=== PATIENT | male | born 1945 | race Caucasian/White ===

== ENCOUNTER 2020-07-06 20:45 | Emergency (ER) | payer MEDICARE, BC ==
[2020-07-06 20:47] VITALS: BP 189/86; PULSE 88
--- NOTE | 2020-07-06 21:59 | EDM.PDOC ---
ED HPI GENERAL MEDICAL PROBLEM - General Chief Complaint: Genitourinary Problem Stated Complaint: unable to void Time Seen by Provider: 07/06/20 20:55 Source of Information: Reports: Patient History Limitations: Reports: No Limitations - History of Present Illness INITIAL COMMENTS - FREE TEXT/NARRATIVE: Pt unable to void since 1600 hrs Did try to self cath at home X 5 using old catheters from 5 yrs ago when had same problem Had TURP at that time Now with no urine Began noticing dysuria yesterday No fever Onset: Gradual Duration: Day(s):, Getting Worse Location: Reports: Abdomen Bladder Pain Score (Numeric/FACES): 8 - Related Data Allergies Allergy/AdvReac Type Severity Reaction Status Date / Time Sulfa (Sulfonamide Allergy Other Verified 07/06/20 20:48 Antibiotics) Home Meds: Home Meds Aspirin [Children's Aspirin] 81 mg PO DAILY 08/14/14 [History] Clopidogrel Bisulfate [Clopidogrel] 1 tab PO DAILY 08/14/14 [History] Irbesartan [Avapro] 300 mg PO DAILY 08/14/14 [History] Mesalamine [Pentasa] 2 cap PO DAILY 08/14/14 [History] Metoprolol Succinate 1 tab PO DAILY 08/14/14 [History] Potassium Chloride [Klor-Con M20] 1 tab PO DAILY 08/14/14 [History] Quinapril [Accupril] 40 mg PO DAILY 08/14/14 [History] amLODIPine [Norvasc] 10 mg PO DAILY 08/14/14 [History] Social & Family History - Tobacco Use Tobacco Use Status *Q: Never Tobacco User Second Hand Smoke Exposure: No - Caffeine Use Caffeine Use: Reports: None - Alcohol Use Days Per Week of Alcohol Use: 2 Number of Drinks Per Day: 1 Total Drinks Per Week: 2 - Recreational Drug Use Recreational Drug Use: No - Living Situation & Occupation Occupation: Retired ED ROS GENERAL - Review of Systems Review Of Systems: See Below Respiratory: Reports: No Symptoms Cardiovascular: Reports: No Symptoms GI/Abdominal: Reports: No Symptoms : Reports: Dysuria, Urinary Retention Musculoskeletal: Reports: No Symptoms ED EXAM, RENAL/ - Physical Exam Exam: See Below Exam Limited By: No Limitations General Appearance: Moderate Distress GI/Abdominal: Soft, Distended, Tender Course - Vital Signs Last Recorded V/S: Last Vital Signs Temp 99.1 F 07/06/20 20:46 Pulse 88 07/06/20 20:46 Resp 18 07/06/20 20:46 BP 189/86 H 07/06/20 20:46 Pulse Ox 98 07/06/20 20:46 - Orders/Labs/Meds Orders: Active Orders 24 hr Category Date Time Status Insert Sheth Catheter [Insert Urinary Catheter] [OM.PC] Care 07/06/20 21:15 Ordered Q24H Urinary Catheter Assessment [RC] ASDIRECTED Care 07/06/20 21:13 Active UA RFX ALICIA AND CULT IF INDIC [URIN] Stat Lab 07/06/20 21:12 Ordered - Re-Assessments/Exams Free Text/Narrative Re-Assessment/Exam: 07/06/20 21:[address] sheth per nursing D/W Dr Brookly[facility] Will accept in transfer to ER Departure - Departure Time of Disposition: 22:00 Disposition: DC/Tfer to Acute Hospital 02 Clinical Impression: Urinary retention - Discharge Information *PRESCRIPTION DRUG MONITORING PROGRAM REVIEWED*: Not Applicable *COPY OF PRESCRIPTION DRUG MONITORING REPORT IN PATIENT GINO: Not Applicable Referrals: Deana Beltran, [employer] [Primary Care Provider] - Sepsis Event Note (ED) - Evaluation Sepsis Screening Result: No Definite Risk - Focused Exam Vital Signs: Vital Signs Temp Pulse Resp BP Pulse Ox 07/06/20 20:46 99.1 F 88 18 189/86 H 98 - My Orders Last 24 Hours: My Active Orders 07/06/20 21:12 UA RFX ALICIA AND CULT IF INDIC [URIN] Stat 07/06/20 21:13 Urinary Catheter Assessment [RC] ASDIRECTED 07/06/20 21:15 Insert Sheth Catheter [Insert Urinary Catheter] [OM.PC] Q24H - Assessment/Plan Last 24 Hours: My Active Orders 07/06/20 21:12 UA RFX ALICIA AND CULT IF INDIC [URIN] Stat 07/06/20 21:13 Urinary Catheter Assessment [RC] ASDIRECTED 07/06/20 21:15 Insert Sheth Catheter [Insert Urinary Catheter] [OM.PC] Q24H
[2020-07-06] MEDS ORDERED: Morphine 4 MG/ML Syringe IM ONE (22:02)
== END 2020-07-06 22:10 ==
LOC: LL.ED 20:45
DX: R33.9 Retention of urine, unspecified (principal); Z79.82 Long term (current) use of aspirin; Z88.2 Allergy status to sulfonamides; Z79.02 Long term (current) use of antithrombotics/antiplatelets; Z79.899 Other long term (current) drug therapy
CPT/HCPCS: 96372; 99284; J2270

== ENCOUNTER 2020-10-06 12:21 | Observation (INO) | payer MEDICARE, BC ==
[2020-10-06] MEDS ORDERED: Famotidine 20 MG/2 ML SDV IVPUSH ONE (12:28)
--- NOTE | 2020-10-06 12:28 | EDM.PDOC ---
ED HPI GENERAL MEDICAL PROBLEM - General Chief Complaint: Chest Pain Stated Complaint: Afib with RVR Time Seen by Provider: 10/06/20 12:27 Source of Information: Reports: Patient, Family (Daughter, Lola), Old Records ([facility] chart/EMR), Other ( [facility] EMR) History Limitations: Reports: No Limitations - History of Present Illness INITIAL COMMENTS - FREE TEXT/NARRATIVE: Patient was brought to the emergency room from the cardiac rehab area in this facility after recurrence of his atrial fibrillation with rapid ventricular response during and after the Cardiolite stress test, which was performed shortly prior to his evaluation in the emergency room. Note that the patient's initial pulses were in the high 40s to low 50s prior to initiation of this proc edure with normal sinus bradycardia at that time, however some occasional PVCs and PACs were noted. No evidence of cardiac ischemia based on exercise portion of the Cardiolite evaluation, which was completed prior to the patient's arrival to the emergency room. Note that the patient was given 10 mg IV diltiazem x2 in the cardiac rehab unit with persistent brief occasional breakthrough mild tachy cardia in the 110s to 120s in spite of the above therapy. Secondary to his baseline bradycardia at rest and refractory atrial fibrillation as above the patient was evaluated in the emergency room for probable placement in observation status in this facility. Patient did have some spontaneous atrial fibrillation a couple of weeks ago prior to scheduled repeat TURP procedure, which was postponed secondary to this arrhythmia. He was placed on Eliquis at that time. The patient denies any chest pain/pressure, dizziness, orthostasis, orthopnea, diaphoresis, paresthesias, recent decreased exercise tolerance, or any other anginal-type symptoms. No recent history of abdominal pain, heartburn, nausea, diarrhea, melena, gross hematochezia, or any food intolerance, including fatty foods, etc.. Note that he does have a current Duran catheter secondary to his severe BPH with urinary retention with no other UTI symptoms at this time. The patient also denies any recent fever, cough, wheezing, dyspnea, etc.. He denies any current pain or discomfort at this time. Onset: Today, Sudden Onset Date: 10/06/20 Onset Time: 11:30 Duration: Improving Location: Reports: Other (No pain) Quality: Reports: Same as Previous Episode Severity: Moderate Improves with: Reports: Medication Worsens with: Reports: None Context: Reports: Exercise. 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: Other Medication(s) (As above) - Related Data Allergies Allergy/AdvReac Type Severity Reaction Status Date / Time Sulfa (Sulfonamide Allergy Other Verified 07/06/20 20:48 Antibiotics) Home Meds: Home Meds Clopidogrel Bisulfate [Clopidogrel] 1 tab PO DAILY 08/14/14 [History] Mesalamine [Pentasa] 2 cap PO Q12HR 08/14/14 [History] Metoprolol Succinate 1 tab PO DAILY 08/14/14 [History] Potassium Chloride [Klor-Con M20] 1 tab PO TID 08/14/14 [History] amLODIPine [Norvasc] 10 mg PO DAILY 08/14/14 [History] Apixaban [Eliquis] 5 mg PO BID@,10/06/20 [History] Calcium Carb/Vit D3/Minerals [ Calcium 600+Minerals Tab] 1 tab PO BID@,10/06/20 [History] Cholecalciferol (Vitamin D3) [Vitamin D3] 1 cap PO DAILY@10/06/20 [History] Ferrous Sulfate [Iron] 1 tab PO BID@,10/06/20 [History] Finasteride [Proscar] 1 tab PO DAILY@10/06/20 [History] Fish Oil/[place]-3 Fatty Acids [Fish Oil 1,000 MG] 1 cap PO DAILY 10/06/20 [History] Furosemide [Lasix] 1 tab PO DAILY 10/06/20 [History] Isosorbide Mononitrate [Imdur] 1 tab PO DAILY@10/06/20 [History] Lactobacillus Combination No.8 [Adult Probiotic] 1 cap PO BID@,10/06/20 [History] Mesalamine [Pentasa] 250 mg PO BID@,10/06/20 [History] Metoprolol Succinate [Toprol XL 100mg] 1 cap PO DAILY 10/06/20 [History] Multivit-Min/Iron/Folic Acid/K [Adults Multivitamin Tablet] 1 tab PO DAILY@12 10/06/20 [History] Oxybutynin [Oxybutynin ER] 1 tab PO DAILY@10/06/20 [History] Rutin/Hesp/Bioflav/C/Pytbtg393 [Bioflex] 1 tab PO BID@08,10/06/20 [History] [place] 1 cap PO BID@,10/06/20 [History] Tamsulosin [Flomax] 1 cap PO DAILY@10/06/20 [History] Ubidecarenone [Coenzyme Q-10] 1 cap PO DAILY 10/06/20 [History] atorvaSTATin [Lipitor] 1 tab PO DAILY@10/06/20 [History] hydrALAZINE [Apresoline] 1 tab PO TID@,,10/06/20 [History] lisinopriL [Lisinopril] 1 tab PO DAILY 10/06/20 [History] Past Medical History HEENT History: Reports: Allergic Rhinitis, Hard of Hearing, Impaired Vision, Sinusitis, Other (See Below). Denies: Cataract, Glaucoma, Macular Degeneration, Otitis Media, Retinal Detachment Other HEENT History: Patient wears glasses. Bilateral presbycusis with no current hearing aid therapy. Current allergic sinusitis with additional eustachian tube dysfunction. Cardiovascular History: Reports: Afib, Aneurysm, Arrhythmia, CAD, Cardiomyopathy, Heart Failure, Heart Murmur, High Cholesterol, Hypertension, ID, PTCA, Stents, Other (See Below). Denies: Blood Clots/VTE/DVT, PVD, Syncope Other Cardiovascular History: Borderline incomplete right bundle branch block, baseline bradycardia, first-degree AV block, PACs with threatening atrial fibrillation at time of acute ID on 11/17/2012 with subsequent PVCs, couplets, PACs, and brief atrial fibrillation with exercise at time of low-level cardiac stress test on 11/26/2012. New onset recurrent persistent atrial fibrillation with rapid ventricular response in September 2020 with successful electrocardioversion on 09/27/2020. Dyslipidemia. Non-STEMI on 11/17/1929 with PTCA/stent x2 as below. Mild to moderate mitral valve insufficiency by echocardiogram with additional left ventricular hypertrophy and severe bilateral atrial enlargement by echocardiogram. Aortic valve stenosis and mitral valve insufficiency by clinical exam. Ascending aortic aneurysm at 4 cm in diameter by CT scan currently under observation program. Respiratory History: Reports: Bronchitis, Recurrent, COPD, Intubation, Previous, Pneumothorax, Sleep Apnea, Other (See Below). Denies: Asthma, Intubation, Difficult, PE, Pneumonia, Recurrent, Pulmonary Fibrosis, TB Other Respiratory History: Patient is compliant with his CPAP. Gastrointestinal History: Reports: Chronic Constipation, GERD, GI Bleed, Inflammatory Bowel Disease, PUD, Other (See Below). Denies: Celiac Disease, Cholelithiasis, Chronic Diarrhea, Colon Polyp, Diverticulosis, Fecal Incontinence, Irritable Bowel Syndrome, Jaundice Other Gastrointestinal History: Recurrent upper GI bleed secondary to peptic ulcers with additional history of small bowel obstruction secondary to adhesions in 1986. Crohn's disease. Benign hepatic cysts. Genitourinary History: Reports: BPH, Hydronephrosis, Prostate Disorder, Renal Calculus, Urinary Incontinence, Other (See Below). Denies: Acute Renal Failure, Chronic Renal Insuffiency, STD Other Genitourinary History: Erectile dysfunction with additional Peyronie's disease. BPH with urinary retention. Bilateral renal cysts. Nonspecific 2.5 cm right renal mass by CT urogram on 08/14/[address] scans with exception of renal cysts as above. Note severe lower urinary tract bleed secondary to a TURP with secondary severe hypotension resulting in a CVA as below. Musculoskeletal History: Reports: Arthritis, Back Pain, Chronic, Fracture, Gout, Neck Pain, Chronic, Osteoarthritis, Other (See Below). Denies: Amputation, RA, SLE Other Musculoskeletal History: Posterior left rib fractures in about 2018. Neurological History: Reports: CVA, Headaches, Chronic, Migraines, Other (See Below). Denies: Alzheimers Disease, Cerebral Aneurysms, Concussion, Head Trauma, MS, Neuropathy, Diabetic, Neuropathy, Peripheral, Parkinson's, Seizure, TIA, Vertigo Other Neuro History: Brief right-sided CVA affecting the PICA, AICA, and SCA secondary to hypotension and hemorrhagic lower urinary tract bleed from a TURP in 2014 as above with brief left-sided hemiparesis but no permanent sequelae. Generalized cerebral atrophy and cerebral microvascular disease. Migraine headaches until his 40s. Psychiatric History: Reports: None. Denies: Abuse, Victim of, ADD, ADHD, Addiction, Anxiety, Depression, Psych Hospitalization(s), PTSD, Suicide Attempt, Suicidal Ideation Endocrine/Metabolic History: Reports: Hypokalemia, Other (See Below). Denies: Diabetes, Type I, Diabetes, Type II, Diabetes Mellitus, Type 3c, Hypothyroidism, IDDM, Osteopenia, Osteoporosis Hematologic History: Reports: Anemia, B12 Deficiency, Blood Transfusion(s), Iron Deficiency, Other (See Below) Other Hematologic History: Multiple previous blood transfusions including in 1973, 1976, 1986 secondary to upper GI bleeds. Additional severe urinary tract bleed secondary to TURP and July 2014 with blood transfusion required at that time. Immunologic History: Reports: None. Denies: AIDS, HIV, SLE Oncologic (Cancer) History: Reports: None. Denies: Basal Cell Carcinoma, Colon, Hodgkin's Lymphoma, Leukemia, Lymphoma, Malignant Melanoma, Non-Hodgkin's Lymphoma, Prostate, Renal Dermatologic History: Reports: Eczema. Denies: Psoriasis - Infectious Disease History Infectious Disease History: Reports: Chicken Pox, Mumps. Denies: C-Difficile, Measles, Meningitis, Mononucleosis, MRSA, Pertussis (Whooping Cough), Rheumatic Fever, Rubella, Scarlet Fever, Shingles, TB, VRE - Past Surgical History Head Surgeries/Procedures: Reports: None (Right around the with a circumcised) HEENT Surgical History: Reports: Adenoidectomy, Oral Surgery, Tonsillectomy. De nies: Cataract Surgery, Detached Retina, Eye Surgery, Laser Surgery, LASIK, Myringotomy w Tube(s), Naso-Sinus Surgery Other HEENT Surgeries/Procedures: Tonsillectomy and adenoidectomy at age 8. [place] teeth extraction x2 uppers with additional teeth extractions. Cardiovascular Surgical History: Reports: Coronary Artery Stent, Percutaneous Transluminal Angioplasty, Other (See Below) Other Cardiovascular Surgeries/Procedures: Successful cardioversion for atrial fibrillation on 09/27/2020. PTCA/stent of the mid LAD and mid circumflex coronary artery on 11/18/2012. Respiratory Surgical History: Reports: None. Denies: Thoracentesis GI Surgical History: Reports: Appendectomy, Colonoscopy, EGD, Hernia, Inguinal, Other (See Below). Denies: Cholecystectomy, Hernia, Abdominal, Hernia Repair/Other, Polypectomy Other GI Surgeries/Procedures: Billroth II with partial vagotomy in 1973. Conversion of Billroth II to a Billroth I with complete vagotomy on 11/03/1986. Appendectomy in 1973. Multiple previous EGDs and colonoscopies with dates of last procedures unknown. Right inguinal hernia repair on 09/06/2003. Male Surgical History: Reports: Circumcision, TURP-Transurethral Resection of Prostate, Other (See Below). Denies: Renal Calculus, Vasectomy Other Male Surgeries/Procedures: Circumcision as an infant. TURP 08/16/2014 complicated by severe lower urinary tract bleed requiring transfusions as above. Endocrine Surgical History: Reports: None. Denies: Thyroid Biopsy Neurological Surgical History: Reports: None. Denies: C-Spine, Discectomy, Laminectomy, Lumbar Spine, Sacral Spine, Spinal Fusion, Thoracic Spine, Vertebroplasty Musculoskeletal Surgical History: Reports: None. Denies: Amputation, Arthro scopic Procedure, Carpal Tunnel, Ganglion Cyst, Joint Replacement, ORIF, Shoulder Surgery Oncologic Surgical History: Reports: None Dermatological Surgical History: Reports: None - Past Imaging History Past Imaging History: Reports: Angiography (Heart catheterization on 11/18/2012.), Cardiac Echo (Last limited echocardiogram on 09/27/2020 with previous evaluations on 02/01/2015, 08/15/2014, and 11/17/2012.), CAT Scan (CT of the abdomen pelvis on 09/05/2020, 07/21/2020, and 08/14/2014. CTA of the head and neck on 08/18/14 which were negative despite positive MRI as below. CT of the head on 08/16/2014.), Cystoscopy (07/08/2020 with previous cystoscopy at time of TURP on 08/16/2014.), MRI (Positive MRI of the brain as above on 08/17/2014.), Sleep Study (04/16/2006 with subsequent sleep study/CPAP titration on 06/10/2006.), Stress Testing (Cardiolite stress test on 10/06/2020, and 10/03/2006 with ejection fraction of 48%. Low-level cardiac stress test on 11/26/2017.), Ultrasound (Renal ultrasound including duplex evaluation on 01/05/2013.), Upper GI X-Ray/Series (Small bowel series/upper GI on 08/29/1999) Social & Family History - Family History HEENT: Reports: Glaucoma, Other (See Below). Denies: Macular Degeneration, Retinal Detachment Other HEENT Family History: Brother with glaucoma. Cardiac: Reports: Arrhythmia, CAD, Heart Failure, Heart Murmur, High Cholesterol, Hypertension, ID, Other (See Below). Denies: Afib, Aneurysm, Blood Clots/VTE/DVT, Syncope Other Cardiac Family History: Hyperlipidemia in brother. Father with CHF and previous history of rheumatic fever requiring valve replacement x3. Mother with unknown type of arrhythmia. Father and sister with hypertension. Respiratory: Reports: None. Denies: Asthma, COPD, PE, Pneumothorax, Sleep Apnea GI: Reports: GI bleed, Irritable Bowel Syndrome, PUD, Other (See Below). Denies: Celiac Disease, Cholelithiasis, Colon Polyps, Inflammatory Bowel Disease Other GI Family History: Father with history of probable upper GI bleed with concomitant renal failure in his 80s. Mother with IBS. Paternal grandfather with possible peptic ulcer disease. Paternal uncle with peptic ulcer disease. Brother with colonic polyps. : Reports: Renal Calculus, Other (See Below) Other Family History: Father with urolithiasis with fatal renal disease and peptic ulcer disease in his 80s. OBGYN: Reports: Dysfunctional uterine bleeding, Fibroids, Other (See Below). Denies: Endometriosis, Recurrent Spontaneous Other OBGYN Family History: Mother with dysfunctional uterine bleeding. Musculoskeletal: Reports: Arthritis, Gout, Osteoarthritis, Other (See Below) Other Musculoskeletal Family History: Father with gout. Daughter with osteoarthritis. Neurological: Reports: CVA, Other (See Below). Denies: Alzheimers Disease, Cerebral Aneurysms, Dementia, Migraines, MS, Neuropathy, Peripheral, Parkinson's, Seizure Other Neurological Family History: Maternal aunt with CVA in her 70s. Paternal uncle with fatal CVA in his 70s. Psychiatric: Reports: None. Denies: Abuse, Victim of, ADD, ADHD, Anxiety, De pression, PTSD, Suicide Attempt Endocrine/Metabolic: Reports: None. Denies: Diabetes, Type I, Diabetes, type II, Hypothyroidism, IDDM Hematologic: Reports: Anemia, Other (See Below). Denies: SLE Other Hematologic Family History: Father with chronic anemia secondary to his renal insufficiency. Immunologic: Reports: None. Denies: AIDS, HIV, SLE Dermatologic: Reports: None. Denies: Eczema, Psoriasis Oncologic: Reports: Bone, Liver, Metastatic, Renal, Other (See Below). Denies: Colon, Leukemia, Lymphoma, Non-Hodgkin's Lymphoma, Prostate, Skin Other Oncologic Family History: Paternal aunt with fatal renal cancer in her 70s. Maternal cousin with fatal renal cancer at age 61. Mother with fatal hepatic cancer at age 83. Paternal aunt with fatal bone cancer in her 80s. - Tobacco Use Tobacco Use Status *Q: Former Tobacco User Tobacco Use Within Last Twelve Months: No Years of Tobacco use: 1 Packs/Tins Daily: 1 Packs/Tins Daily Comment: Smoked between ages 21 and 22. Used Tobacco, but Quit: Yes Smoking Cessation Information Provided To Patient: No Second Hand Smoke Exposure: No - Caffeine Use Caffeine Use: Reports: Soda (1 soda per week). Denies: Coffee, Energy Drinks, Tea - Alcohol Use Alcohol Use History: Yes Days Per Week of Alcohol Use: 1 Number of Drinks Per Day: 1 Number of Drinks Per Day Comment: Usually beer. No previous DWIs, problems with alcohol abuse, etc. Total Drinks Per Week: 1 Alcohol Use in Last Twelve Months: No Alcohol Use Frequency: Weekly - Recreational Drug Use Recreational Drug Use: No Drug Use in Last 12 Months: No Recreational Drug Type: Denies: Cocaine, Heroin, Inhalants (Glues, Solvents, Aerosols), Ketamines, LSD (Acid), Marijuana/Hashish, Methamphetamine, Morphine, Oxycodone - Sexual History Sexual History: Reports: Single Partner - Living Situation & Occupation Living situation: Reports: (1969, 2 children. 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 ED EXAM, GENERAL - Physical Exam Exam: See Below (Good efficacy ask you anything that you are thickening) Exam Limited By: No Limitations General Appearance: Alert, WD/WN, No Apparent Distress Eye Exam: Bilateral Eye: EOMI, Normal Inspection (Patient is wearing glasses. No vertigo or nystagmus.), Periorbital Changes Ears: Normal External Exam, Normal Canal, Normal TMs, Hearing Loss (Mild bilateral presbycusis. We will). No: Hearing Grossly Normal Nose: Normal Inspection, Normal Mucosa, No Blood Throat/Mouth: Normal Inspection, Normal Lips, Normal Teeth, Normal Gums, Normal Oropharynx, Normal Voice, No Airway Compromise, Other (3 mm stable by history uniform black nevus in the left buccal region.). No: Dysphagia, Perioral Cyanosis Head: Atraumatic, Normocephalic. No: Facial Swelling, Facial Tenderness, Sinus Tenderness Neck: Supple, Non-Tender, Full Range of Motion, Carotid Bruit (Mild bilateral carotid bruits versus transmitted heart sounds). No: Lymphadenopathy (L), Lymphadenopathy (R), Thyromegaly Respiratory/Chest: No Respiratory Distress, Lungs Clear, Normal Breath Sounds, No Accessory Muscle Use, Chest Non-Tender. No: Pleural Rub, Retractions Cardiovascular: Bradycardia (Moderate bradycardia in the high 40s and low 50s at rest prior to exercise Cardiolite stress test), Extra Beats (Occasional PACs by monitor prior to Cardiolite stress test as above), Irregularly Irregular. No: Tachycardia (Resolved after treatment in cardiac rehabilitation unit as above) Peripheral Pulses: 2+: Radial (L), Radial (R), Dorsalis Pedis (L), Dorsalis Pedis (R) GI/Abdominal: Normal Bowel Sounds, Soft, Non-Tender, No Organomegaly, No Distention, No Abnormal Bruit, No Mass, Pelvis Stable. No: Guarding (Male) Exam: Deferred Rectal (Males) Exam: Deferred Back Exam: Normal Inspection, Full Range of Motion. No: CVA Tenderness (L), CVA Tenderness (R), Muscle Spasm Extremities: Normal Inspection, Normal Range of Motion, Non-Tender, No Pedal Edema, Normal Capillary Refill. No: Dain's Sign Neurological: Alert, Oriented, CN II-XII Intact, Normal Cognition, Normal Gait, Normal Reflexes (Negative Babinski's), No Motor/Sensory Deficits, Other (No clinical orthostasis) Psychiatric: Normal Affect, Normal Mood Skin Exam: Warm, Dry, Intact, Normal Color, No Rash. No: Diaphoretic, Ecchymosis, Lymphangitis, Wound/Incision, Zoster-Like Rash Lymphatic: No Adenopathy #1 Interpretation EKG Date: 10/06/20 Time: 13:03 Rhythm: A-Fib Rate (Beats/Min): 77 [place]: Normal (Neutral) P-Wave: Variable QRS: Wide (0.10 seconds representing repolarization changes) ST-T: Normal QT: Normal NV/PQ Interval: Poor R wave progression in the anterior leads. Variable NV secondary to atrial fibrillation Comparison: Change From Previous EKG (New atrial fibrillation since baseline EKG prior to Cardiolite stress test earlier this morning) EKG Interpretation Comments: 1. No acute ischemic changes 2. Atrial fibrillation Course - Vital Signs Last Recorded V/S: Last Vital Signs Temp 36.4 C 10/06/20 13:09 Pulse 80 10/06/20 14:15 Resp 17 10/06/20 14:15 BP 133/81 10/06/20 14:15 Pulse Ox 96 10/06/20 14:15 Vital Signs - 24 hr 10/06/20 10/06/20 10/06/20 13:09 13:24 13:30 Temperature [ 36.4 C Temporal] Pulse, 69 82 80 Peripheral [ Pulse Oximetry] Respiratory 20 16 16 Rate Blood Pressure 142/79 H 133/72 167/81 H [Left Arm] O2 Sat by Pulse 94 L 95 97 Oximetry 10/06/20 10/06/20 14:00 14:15 Temperature [ Temporal] Pulse, 80 80 Peripheral [ Pulse Oximetry] Respiratory 16 17 Rate Blood Pressure 146/84 H 133/81 [Left Arm] O2 Sat by Pulse 96 96 Oximetry - Orders/Labs/Meds Orders: Active Orders 24 hr Category Date Time Status Cardiac Monitoring [RC] . DIRECTED Care 10/06/20 12:29 Active EKG Documentation Completion [RC] ASDIRECTED Care 10/06/20 12:29 Active Oxygen Therapy, ED [RC] PRN Care 10/06/20 12:29 Active Peripheral IV Care [RC] . DIRECTED Care 10/06/20 12:29 Active Pulse Oximetry [RC] CONTINUOUS Care 10/06/20 12:29 Active Up With Assistance [RC] PFP Care 10/06/20 12:29 Active Vital Signs [RC] PFP Care 10/06/20 12:29 Active Nothing per Oral Now Diet [DIET] Diet 10/06/20 Breakfast Active Chest 1V Frontal [CR] Stat Exams 10/06/20 12:29 Taken Sodium Chloride 0.9% [Saline Flush] Med 10/06/20 12:28 Active 10 ml FLUSH ASDIRECTED PRN Obtain Past Medical Record [OM.PC] Urgent Oth 10/06/20 12:29 Active Peripheral IV Insertion Adult [OM.PC] Stat Oth 10/06/20 12:29 Ordered Resuscitation Status Stat Resus Stat 10/06/20 12:28 Ordered Medication Orders Sodium Chloride (Sodium Chloride 0.9% 10 Ml Syringe) 10 ml FLUSH ASDIRECTED PRN PRN Reason: Keep Vein Open Last Admin: 10/06/20 13:31 Dose: 10 ml Documented by: SHARIFA Labs: Laboratory Tests 10/06/20 10/06/20 10/06/20 Range/Units 13:50 13:50 13:50 WBC 6.6 (4.0-10.2) K/uL RBC 4.59 (4.33-5.41) M/uL Hgb 12.8 L D (13.1-16.8) g/dL Hct 39.3 (39.0-49.0) % MCV 85.6 D (84.0-98.0) fL MCH 27.9 L (28.2-33.3) pg MCHC 32.6 (31.7-36.0) g/dL RDW 14.6 H (11.2-14.1) % Plt Count 175 (150-350) K/uL Neut % (Auto) 74.0 (45.0-80.0) % Lymph % (Auto) 17.1 (10.0-50.0) % [place] % (Auto) 6.5 (2.0-14.0) % Eos % (Auto) 2.1 (0.0-5.0) % Baso % (Auto) 0.3 (0.0-2.0) % Neut # (Auto) 4.87 (1.40-7.00) K/uL Lymph # (Auto) 1.13 (0.50-3.50) K/uL [place] # (Auto) 0.43 (0.00-1.00) K/uL Eos # (Auto) 0.14 (0.00-0.50) K/uL Baso # (Auto) 0.02 (0.00-0.20) K/uL PT 10.9 (9.5-12.0) SEC INR 1.1 APTT 27.0 (24.5-32.8) SEC D-Dimer, Quantitative < 100 (0-400) ng/mL Sodium (136-145) mmol/L Potassium (3.5-5.1) mmol/L Chloride (98-107) mmol/L Carbon Dioxide (21.0-32.0) mmol/L BUN (7-18) mg/dL Creatinine (0.51-1.17) mg/dL Est Cr Clr Drug Dosing mL/min Estimated GFR (MDRD) mL/min Glucose (70-99) mg/dL Lactic Acid (0.4-2.0) mmol/L Uric Acid (2.6-7.2) mg/dL Calcium (8.5-10.1) mg/dL Magnesium (1.8-2.4) mg/dL Total Bilirubin (0.2-1.0) mg/dL AST (15-37) U/L ALT (12-78) U/L Alkaline Phosphatase (46-116) IU/L Creatine Kinase (26-308) U/L Creatine Kinase Index (0.0-2.5) % CK-MB (CK-2) (0.00-3.60) ng/mL Troponin I (0.000-0.056) ng/mL NT-Pro-B Natriuret Pep (0-125) pg/mL Total Protein (6.4-8.2) g/dL Albumin (3.4-5.0) g/dL TSH, Ultra Sensitive (0.358-3.740) mIU/mL 10/06/20 10/06/20 Range/Units 13:50 13:50 WBC (4.0-10.2) K/uL RBC (4.33-5.41) M/uL Hgb (13.1-16.8) g/dL Hct (39.0-49.0) % MCV (84.0-98.0) fL MCH (28.2-33.3) pg MCHC (31.7-36.0) g/dL RDW (11.2-14.1) % Plt Count (150-350) K/uL Neut % (Auto) (45.0-80.0) % Lymph % (Auto) (10.0-50.0) % [place] % (Auto) (2.0-14.0) % Eos % (Auto) (0.0-5.0) % Baso % (Auto) (0.0-2.0) % Neut # (Auto) (1.40-7.00) K/uL Lymph # (Auto) (0.50-3.50) K/uL [place] # (Auto) (0.00-1.00) K/uL Eos # (Auto) (0.00-0.50) K/uL Baso # (Auto) (0.00-0.20) K/uL PT (9.5-12.0) SEC INR APTT (24.5-32.8) SEC D-Dimer, Quantitative (0-400) ng/mL Sodium 144 (136-145) mmol/L Potassium 2.8 L* (3.5-5.1) mmol/L Chloride 105 (98-107) mmol/L Carbon Dioxide 29.9 (21.0-32.0) mmol/L BUN 13 (7-18) mg/dL Creatinine 0.84 (0.51-1.17) mg/dL Est Cr Clr Drug Dosing 88.51 mL/min Estimated GFR (MDRD) > 60 mL/min Glucose 94 (70-99) mg/dL Lactic Acid 0.6 (0.4-2.0) mmol/L Uric Acid 6.1 (2.6-7.2) mg/dL Calcium 8.8 (8.5-10.1) mg/dL Magnesium 1.9 (1.8-2.4) mg/dL Total Bilirubin 1.0 (0.2-1.0) mg/dL AST 18 (15-37) U/L ALT 32 (12-78) U/L Alkaline Phosphatase 102 (46-116) IU/L Creatine Kinase 86 (26-308) U/L Creatine Kinase Index 1.7 (0.0-2.5) % CK-MB (CK-2) 1.50 (0.00-3.60) ng/mL Troponin I 0.202 H* (0.000-0.056) ng/mL NT-Pro-B Natriuret Pep 695 H (0-125) pg/mL Total Protein 7.0 (6.4-8.2) g/dL Albumin 3.9 (3.4-5.0) g/dL TSH, Ultra Sensitive 1.354 (0.358-3.740) mIU/mL Meds: Medications Generic Name Dose Route Start Last Admin Trade Name Freq PRN Reason Stop Dose Admin Sodium Chloride 10 ml 10/06/20 12:28 10/06/20 13:31 Sodium Chloride 0.9% 10 Ml Syringe FLUSH 10 ml ASDIRECTED PRN Administration Keep Vein Open Discontinued Medications Generic Name Dose Route Start Last Admin Trade Name Freq PRN Reason Stop Dose Admin Famotidine 40 mg 10/06/20 12:28 10/06/20 13:32 Famotidine 20 Mg/2 Ml Sdv IVPUSH 10/06/20 12:29 40 mg ONETIME ONE Administration - Radiology Interpretation Free Text/Narrative:: athletic monitor shows improvement with still persistent atrial fibrillation with average heart rate in the 70s to 90s however occasional mild tachycardia in the low 100s. Chest x-ray, portable, shows evidence of mild cardiomegaly with mild to moderate pulmonary obstructive disease. Mild calcification of the aortic valve with no significant CHF, pulmonary infiltrates, pneumothorax, etc. Departure - Departure Time of Disposition: 14:50 Disposition: Refer to Observation Condition: Good Clinical Impression: Atrial fibrillation with RVR, Coronary artery disease, PAC (premature atrial contraction), PVC's (premature ventricular contractions), Peptic reflux disease, Osteoarthritis, BPH (benign prostatic hyperplasia), Urolithiasis, Sleep apnea Referrals: Daena Beltran, [employer] [Primary Care Provider] - Forms: ED Department Discharge Care Plan Goals: See plan Sepsis Event Note (ED) - Focused Exam Vital Signs: Vital Signs Temp Pulse Resp BP Pulse Ox 10/06/20 14:15 80 17 133/81 96 10/06/20 14:00 80 16 146/84 H 96 10/06/20 13:30 80 16 167/81 H 97 10/06/20 13:24 82 16 133/72 95 10/06/20 13:09 36.4 C 69 20 142/79 H 94 L - Problem List & Annotations (1) Atrial fibrillation with RVR SNOMED Code(s): 514358150389556 Code(s): I48.91 - UNSPECIFIED ATRIAL FIBRILLATION Status: Acute Priority: High Current Visit: Yes Onset Date: 10/06/20 Annotation/Comment:: Recurrent atrial fibrillation with recent successful electrocardioversion on 09/27/2020 as above. Secondary to patient's baseline moderate bradycardia with current medical regimen and persistent refractory atrial fibrillation despite treatment in the cardiac rehabilitation unit as above, the patient was placed in observation status for further medication adjustment. Secondary to baseline bradycardia his Toprol-XL in the morning will be decreased and low-dose oral Cardizem CD will be initiated later this afternoon. [facility] physician assumes care. Initiate standard standard rule out ID orders, however no anginal type symptoms either prior to admission or during the Cardiolite stress test prior to admission as above. Cardiology consultation depending on his clinical course. Patient is currently on Eliquis. Note brief return of his tachycardia in the 150s when he tried to empty his Duran catheter on his own shortly prior to placement in observation status. Oral Cardizem CD to be given shortly after admission with a.m. Toprol-XL regimen to be decreased secondary to his baseline previous bradycardia. (2) Coronary artery disease SNOMED Code(s): 42348268 Code(s): I25.10 - ATHSCL HEART DISEASE OF [place] CORONARY ARTERY W/O ANG PCT RS Status: Chronic Priority: Medium Current Visit: Yes Annotation/Comment:: As above. No chest pain or anginal type symptoms during this procedure, etc. Elevated troponin I likely inconsequential in nature secondary to his atrial fibrillation and CHF with elevated BNP. Initiate routine rule out ID orders as above. EKG does not show any evidence of acute ischemic changes. Note distant PTCA/stent x2. Note Cardiolite stress test completed today with stat read requested for the Cardiolite scan. Qualifiers: Coronary Disease-Associated Artery/Lesion type: [place] artery [place] vs. transplanted heart: [place] heart Associated angina: without angina Qualified Code(s): I25.10 - Atherosclerotic heart disease of [place] coronary artery without angina pectoris (3) BPH (benign prostatic hyperplasia) SNOMED Code(s): 013480158 Code(s): N40.0 - BENIGN PROSTATIC HYPERPLASIA WITHOUT LOWER URINRY TRACT SYMP Status: Chronic Priority: High Current Visit: Yes Annotation/Comment:: Symptomatic BPH with current Duran catheter therapy with planned upcoming repeat TURP procedure and concomitant left-sided urinary stone removal in the near future once his cardiac status has been determined and stabilized. Qualifiers: Lower urinary tract symptom presence: symptoms present Lower urinary tract symptom detail: urinary obstruction Qualified Code(s): N40.1 - Benign prostatic hyperplasia with lower urinary tract symptoms; N13.8 - Other obstructive and reflux uropathy (4) Osteoarthritis SNOMED Code(s): 181184572 Code(s): M19.90 - UNSPECIFIED OSTEOARTHRITIS, UNSPECIFIED SITE Status: Chronic Priority: Medium Current Visit: Yes Annotation/Comment:: Stable by history. Qualifiers: Osteoarthritis location: multiple joints Osteoarthritis type: primary Qualified Code(s): M89.49 - Other hypertrophic osteoarthropathy, multiple sites (5) PAC (premature atrial contraction) SNOMED Code(s): 420766817 Code(s): I49.1 - ATRIAL PREMATURE DEPOLARIZATION Status: Chronic Priority: Medium Current Visit: Yes Annotation/Comment:: Nonsymptomatic. (6) PVC's (premature ventricular contractions) SNOMED Code(s): 78606229 Code(s): I49.3 - VENTRICULAR PREMATURE DEPOLARIZATION Status: Chronic Priority: Medium Current Visit: Yes Annotation/Comment:: Nonsymptomatic (7) Peptic reflux disease SNOMED Code(s): 279951437 Code(s): K21.9 - GASTRO-ESOPHAGEAL REFLUX DISEASE WITHOUT ESOPHAGITIS Status: Chronic Priority: Medium Current Visit: Yes Annotation/Comment:: Nonsymptomatic. High-dose IV Pepcid given as GI prophylaxis. (8) Sleep apnea SNOMED Code(s): 97898131 Code(s): G47.30 - SLEEP APNEA, UNSPECIFIED Status: Chronic Priority: Medium Current Visit: Yes Annotation/Comment:: Patient has been compliant with his CPAP, which will also be used during this hospitalization. Qualifiers: Sleep apnea type: obstructive Qualified Code(s): G47.33 - Obstructive sleep apnea (adult) (pediatric) (9) Urolithiasis SNOMED Code(s): 86521265 Code(s): N20.9 - URINARY CALCULUS, UNSPECIFIED Status: Chronic Priority: Medium Current Visit: Yes Annotation/Comment:: Planned upcoming surgical procedure as above. Qualifiers: Urinary calculus location: upper urinary tract Qualified Code(s): N20.9 - Urinary calculus, unspecified (10) Hypokalemia SNOMED Code(s): 56868787 Code(s): E87.6 - HYPOKALEMIA Status: Chronic Priority: Medium Current Visit: Yes Annotation/Comment:: The patient did not take his Lasix, lisinopril, or potassium this morning prior to Cardiolite stress test. Aggressive oral supplementation of his hypokalemia. This may be a contributing factor to his return to atrial fibrillation as above. (11) CHF (congestive heart failure) SNOMED Code(s): 54439891 Code(s): I50.9 - HEART FAILURE, UNSPECIFIED Status: Chronic Priority: Medium Current Visit: Yes Annotation/Comment:: Note recent limited echocardiogram on 09/27/2020 as above. Patient is already on lisinopril and Lasix, which were not taken earlier this morning as above. Note elevated BNP. Further diuresis with caution secondary to his hypokalemia. Excellent diuresis in the emergency room. Observe for now. Qualifiers: Heart failure type: systolic Heart failure chronicity: chronic Qualified Code(s): I50.22 - Chronic systolic (congestive) heart failure - Problem List Review Problem List Initiated/Reviewed/Updated: Yes - My Orders Last 24 Hours: My Active Orders 10/06/20 Breakfast Nothing per Oral Now Diet [DIET] 10/06/20 12:28 Sodium Chloride 0.9% [Saline Flush] 10 ml FLUSH ASDIRECTED PRN Resuscitation Status Stat 10/06/20 12:29 Cardiac Monitoring [RC] . DIRECTED EKG Documentation Completion [RC] ASDIRECTED Oxygen Therapy, ED [RC] PRN Peripheral IV Care [RC] . DIRECTED Pulse Oximetry [RC] CONTINUOUS Up With Assistance [RC] PFP Vital Signs [RC] PFP Chest 1V Frontal [CR] Stat Obtain Past Medical Record [OM.PC] Urgent Peripheral IV Insertion Adult [OM.PC] Stat - Assessment/Plan Admission H&P: Please use this note as an admission H&P Last 24 Hours: My Active Orders 10/06/20 Breakfast Nothing per Oral Now Diet [DIET] 10/06/20 12:28 Sodium Chloride 0.9% [Saline Flush] 10 ml FLUSH ASDIRECTED PRN Resuscitation Status Stat 10/06/20 12:29 Cardiac Monitoring [RC] . DIRECTED EKG Documentation Completion [RC] ASDIRECTED Oxygen Therapy, ED [RC] PRN Peripheral IV Care [RC] . DIRECTED Pulse Oximetry [RC] CONTINUOUS Up With Assistance [RC] PFP Vital Signs [RC] PFP Chest 1V Frontal [CR] Stat Obtain Past Medical Record [OM.PC] Urgent Peripheral IV Insertion Adult [OM.PC] Stat Assessment:: As above Plan: As above. Extensive precautions were given to the patient and his daughter, Lola, who are in agreement with the treatment plan. The patient's condition is stable enough for observation status and general supervision.
[2020-10-06] MEDS: Sodium Chloride 0.9% 10 ML Syringe FLUSH PRN ×2 (13:31→18:00)
[2020-10-06 14:36] LABS: CHLORIDE,CL 105 mmol/L (98-107); SODIUM,NA 144 mmol/L (136-145)
[2020-10-06] MEDS ORDERED: Diltiazem 120 MG Cap.CD PO ONE (15:00)
[2020-10-06] MEDS ORDERED: Acetaminophen 325 MG Tab PO PRN (15:00)
[2020-10-06] MEDS ORDERED: Sodium Chloride 0.9% 10 ML Syringe FLUSH PRN (15:01)
[2020-10-06] MEDS ORDERED: Temazepam 15 MG Cap PO PRN (15:01)
[2020-10-06] MEDS: Potassium Chloride 20 MEQ Tab.ER PO SCH ×2 (15:51→18:02)
[2020-10-06] MEDS: Isosorbide Mononitrate 60 MG Tab.ER PO SCH (15:52)
[2020-10-06] MEDS: Ferrous Sulfate 325 MG Tab PO SCH (17:58)
[2020-10-06] MEDS: Apixaban 5 MG Tab PO SCH (17:58)
[2020-10-06] MEDS: Furosemide 40 MG/4 ML VIAL IVPUSH SCH (17:59)
[2020-10-06] MEDS: hydrALAZINE 10 MG Tab PO SCH ×2 (18:00→23:06)
[2020-10-06] MEDS: MESALAMINE 250 MG PO SCH ×2 (19:54→23:05)
[2020-10-06] MEDS ORDERED: atorvaSTATin 40 MG Tab PO SCH (23:00)
[2020-10-07 07:38] LABS: HEMOGLOBIN A1C 5.4 % (4.3-5.7)
[2020-10-07] MEDS ORDERED: amLODIPine 5 MG Tab PO SCH (08:00)
[2020-10-07] MEDS ORDERED: Lisinopril 20 MG Tab PO SCH (08:00)
[2020-10-07] MEDS ORDERED: Metoprolol Succinate 50 MG Tab.ER PO SCH (08:00)
[2020-10-07] MEDS ORDERED: Tamsulosin 0.4 MG Cap.ER PO SCH (08:00)
[2020-10-07] MEDS: Apixaban 5 MG Tab PO SCH (08:31)
[2020-10-07] MEDS: Potassium Chloride 20 MEQ Tab.ER PO SCH ×2 (08:31→12:21)
[2020-10-07] MEDS: Sodium Chloride 0.9% 10 ML Syringe FLUSH PRN (08:32)
[2020-10-07] MEDS: Furosemide 40 MG/4 ML VIAL IVPUSH SCH (08:32)
[2020-10-07] MEDS: hydrALAZINE 10 MG Tab PO SCH (08:33)
[2020-10-07] MEDS: MESALAMINE 250 MG PO SCH ×2 (08:34→12:22)
[2020-10-07] MEDS ORDERED: Finasteride 5 MG Tab PO SCH (12:00)
[2020-10-07] MEDS ORDERED: Oxybutynin 5 MG Tab.ER PO SCH (12:00)
[2020-10-07] MEDS: Ferrous Sulfate 325 MG Tab PO SCH (12:21)
[2020-10-07] MEDS: Isosorbide Mononitrate 60 MG Tab.ER PO SCH (12:21)
--- NOTE | 2020-10-07 16:23 | PCM.DCSUM1 ---
Discharge Summary - Hospital Course Brief History: Admitted observation after going into Afib with RVR while undergoing Cardiolite stress test yesterday. Diagnosis: Stroke: No - Discharge Data Discharge Date: 10/07/20 Discharge Disposition: DC/Tfer to Acute Hospital 02 Condition: Good - Referral to Home Health Primary Care Physician: Deana Beltran NP - Discharge Diagnosis/Problem(s) (1) Atrial fibrillation with RVR SNOMED Code(s): 039617784983965 ICD Code: I48.91 - UNSPECIFIED ATRIAL FIBRILLATION Status: Acute Priority: High Current Visit: No Onset Date: 10/06/20 Problem Details: Note that during the exercise portion of the Cardiolite stress test the patient did exhibit some threatening brief atrial fibrillation with additional PACs and PVCs, however difficult exam secondary to baseline artifacts with exercise. He was still in sinus rhythm at the end of exercise, although he did not achieve his 85% maximum exercise level secondary to his current high-dose Toprol-XL therapy. Shortly in the early portions of the recovery period the patient began experiencing refractory atrial fibrillation with maximum heart rate of 129. Persistent breakthrough episodes of tachycardia despite 2 doses of IV diltiazem 10 mg each in the cardiac rehabilitation unit. Note recent recurrent atrial fibrillation with recent successful electrocardioversion on 09/27/2020 as above with the patient placed on Eliquis at that time. Secondary to patient's baseline moderate bradycardia with current medical regimen and persistent refractory atrial fibrillation despite treatment in the cardiac rehabilitation unit as above, the patient was transferred to the emergency room for further evaluation and planned placement in observation status for further medication adjustment. Cardiolite scan was completed prior to patient's transfer to the emergency room with stable physical exam and vitals after IV diltiazem x2 were given as above. A request was made for stat read of this Cardiolite scan. Cardiology consultation depending on his clinical course. Patient is currently on Eliquis. (2) Hypokalemia SNOMED Code(s): 80609836 ICD Code: E87.6 - HYPOKALEMIA Status: Chronic Priority: Medium Current Visit: Yes Problem Details: The patient did not take his Lasix, lisinopril, or potassium yestserday prior to Cardiolite stress test. Aggressive K supplementation overnight returned level to normal. This may be a contributing factor to his return to atrial fibrillation as above. (3) Coronary artery disease SNOMED Code(s): 38834383 ICD Code: I25.10 - ATHSCL HEART DISEASE OF [place] CORONARY ARTERY W/O ANG PCTRS Status: Chronic Priority: Medium Current Visit: No Problem Details: Negative exercise portion of Cardiolite stress test for cardiac ischemia with previous history of PTCA/stent x2 on 11/18/2012 as above. Patient sent to the emergency room for possible placement in observation status as above. Results from scan show inferior/inferoseptal infarction/moderately large defect/extending from base to apex. No reversible perfusion defect. LVEF 80%. Persistently elevated troponins during stay. Per patient and family he usually runs a higher Troponin level around .1 He was noted to have 0.2 initially after being seen in ER. 4th troponin still elevated at 0.169 Denied chest pain or CP associated symptoms throughout stay. Qualifiers: Coronary Disease-Associated Artery/Lesion type: [place] artery [place] vs. transplanted heart: [place] heart Associated angina: without angina Qualified Code(s): I25.10 - Atherosclerotic heart disease of [place] coronary artery without angina pectoris (4) CHF (congestive heart failure) SNOMED Code(s): 73928452 ICD Code: I50.9 - HEART FAILURE, UNSPECIFIED Status: Chronic Priority: Medium Current Visit: Yes Problem Details: Note recent limited echocardiogram on 09/27/2020 as above. Note elevated BNP/more elevated today. Excellent diuresis in the emergency room. BUN/Cr noted to be elevated today/most likely secondary to the diuresis. Qualifiers: Heart failure type: systolic Heart failure chronicity: chronic Qualified Code(s): I50.22 - Chronic systolic (congestive) heart failure (5) BPH (benign prostatic hyperplasia) SNOMED Code(s): 833549349 ICD Code: N40.0 - BENIGN PROSTATIC HYPERPLASIA WITHOUT LOWER URINRY TRACT SYMP Status: Chronic Priority: High Current Visit: Yes Problem Details: Symptomatic BPH with current Duran catheter therapy with planned upcoming repeat TURP procedure and concomitant left-sided urinary stone removal in the near future once his cardiac status has been determined and stabilized. Qualifiers: Lower urinary tract symptom presence: symptoms present Lower urinary tract symptom detail: urinary obstruction Qualified Code(s): N40.1 - Benign prostatic hyperplasia with lower urinary tract symptoms; N13.8 - Other obstructive and reflux uropathy (6) Dyslipidemia SNOMED Code(s): 209010678 ICD Code: E78.5 - HYPERLIPIDEMIA, UNSPECIFIED Status: Chronic Priority: Medium Current Visit: No Problem Details: Currently under therapy (7) Hypertension SNOMED Code(s): 16183387 ICD Code: I10 - ESSENTIAL (PRIMARY) HYPERTENSION Status: Chronic Priority: Medium Current Visit: No Problem Details: Overall good control at this time Qualifiers: Hypertension type: essential hypertension (8) Osteoarthritis SNOMED Code(s): 184250690 ICD Code: M19.90 - UNSPECIFIED OSTEOARTHRITIS, UNSPECIFIED SITE Status: Chronic Priority: Medium Current Visit: Yes Problem Details: Stable by history. Qualifiers: Osteoarthritis location: multiple joints Osteoarthritis type: primary Qualified Code(s): M89.49 - Other hypertrophic osteoarthropathy, multiple sites (9) PAC (premature atrial contraction) SNOMED Code(s): 268981652 ICD Code: I49.1 - ATRIAL PREMATURE DEPOLARIZATION Status: Chronic Priority: Medium Current Visit: No Problem Details: Increased frequency with exercise, although nonsymptomatic. Note subsequent development of recurrent atrial fibrillation with rapid ventricular response. (10) PVC's (premature ventricular contractions) SNOMED Code(s): 34298912 ICD Code: I49.3 - VENTRICULAR PREMATURE DEPOLARIZATION Status: Chronic Priority: Medium Current Visit: No Problem Details: Significant increased frequency during the recovery period, although nonsymptomatic. (11) Peptic reflux disease SNOMED Code(s): 807976886 ICD Code: K21.9 - GASTRO-ESOPHAGEAL REFLUX DISEASE WITHOUT ESOPHAGITIS Status: Chronic Priority: Medium Current Visit: No Problem Details: Nonsymptomatic. High-dose IV Pepcid given as GI prophylaxis given in the emergency room. Complained of indegestion after taking potassium pill. Requested vinegar/water and said that this resolved his indigestion. (12) Sleep apnea SNOMED Code(s): 26953812 ICD Code: G47.30 - SLEEP APNEA, UNSPECIFIED Status: Chronic Priority: Medium Current Visit: No Problem Details: Patient has been compliant with his CPAP. Qualifiers: Sleep apnea type: obstructive Qualified Code(s): G47.33 - Obstructive sleep apnea (adult) (pediatric) (13) Urolithiasis SNOMED Code(s): 96246931 ICD Code: N20.9 - URINARY CALCULUS, UNSPECIFIED Status: Chronic Priority: Medium Current Visit: Yes Problem Details: Planned upcoming surgical procedure as above. Qualifiers: Urinary calculus location: upper urinary tract Qualified Code(s): N20.9 - Urinary calculus, unspecified - Patient Summary/Data Hospital Course: Patient observed. Telemetry. Noted to increase to 140s when up and out of bed. Otherwise would sit in 70s/80s when resting. Troponins trended downward but still remained elevated. No anginal complaints or associated symptoms during stay. One episode of heartburn after potassium pill as noted above. EKG this morning showed continued Afib. Noted to not elevate as high today with activity. Cardizem given yesterday in IV and oral form. Vital signs stable. Suddenly noted to to have pulse in 40s starting a little after 3PM. Repeat EKG showed sinus bradycardia. At that time consulting via phone with . Given patient's recent issues with Afib, increase in Troponins, and defect noted on yesterday's Cardiolite scan, it was decided to transfer the patient to [facility]. suggested that patient would benefit from updated angiogram. Last study performed in 2012. - Discharge Plan Home Medications: Home Meds Clopidogrel Bisulfate [Clopidogrel] 1 tab PO DAILY 08/14/14 [History] Mesalamine [Pentasa] 2 cap PO Q12HR 08/14/14 [History] Metoprolol Succinate 1 tab PO DAILY 08/14/14 [History] Potassium Chloride [Klor-Con M20] 1 tab PO TID 08/14/14 [History] amLODIPine [Norvasc] 10 mg PO DAILY 08/14/14 [History] Apixaban [Eliquis] 5 mg PO BID@,10/06/20 [History] Calcium Carb/Vit D3/Minerals [Sm Calcium 600+Minerals Tab] 1 tab PO BID@,10/06/20 [History] Cholecalciferol (Vitamin D3) [Vitamin D3] 1 cap PO DAILY@10/06/20 [History] Ferrous Sulfate [Iron] 1 tab PO BID@,10/06/20 [History] Finasteride [Proscar] 1 tab PO DAILY@10/06/20 [History] Fish Oil/[place]-3 Fatty Acids [Fish Oil 1,000 MG] 1 cap PO DAILY 10/06/20 [History] Furosemide [Lasix] 1 tab PO DAILY 10/06/20 [History] Isosorbide Mononitrate [Imdur] 1 tab PO DAILY@10/06/20 [History] Lactobacillus Combination No.8 [Adult Probiotic] 1 cap PO BID@,10/06/20 [History] Mesalamine [Pentasa] 250 mg PO BID@,10/06/20 [History] Metoprolol Succinate [Toprol XL 100mg] 1 cap PO DAILY 10/06/20 [History] Multivit-Min/Iron/Folic Acid/K [Adults Multivitamin Tablet] 1 tab PO DAILY@10/06/20 [History] Oxybutynin [Oxybutynin ER] 1 tab PO DAILY@10/06/20 [History] Rutin/Hesp/Bioflav/C/[id number] [Bioflex] 1 tab PO BID@,10/06/20 [History] [place] 1 cap PO BID@,10/06/20 [History] Tamsulosin [Flomax] 1 cap PO DAILY@10/06/20 [History] Ubidecarenone [Coenzyme Q-10] 1 cap PO DAILY 10/06/20 [History] atorvaSTATin [Lipitor] 1 tab PO DAILY@10/06/20 [History] hydrALAZINE [Apresoline] 1 tab PO TID@,18,10/06/20 [History] lisinopriL [Lisinopril] 1 tab PO DAILY 10/06/20 [History] Forms: ED Department Discharge Referrals: Deana Beltran, [employer] [employer] [employer] [Primary Care Provider] - - Discharge Summary/Plan Comment DC Time >30 min.: Yes (waiting for bed confirmation) - General Info Date of Service: 10/07/20 Admission Dx/Problem (Free Text: Afib/RVR and hypokalemia Subjective Update: Feels good overall but "isn't right" when he stands up and performs activities. Denies overt dizziness. Functional Status: Reports: Pain Controlled, Tolerating Diet, Ambulating, Urinating. Denies: New Symptoms - Review of Systems General: Reports: No Symptoms HEENT: Denies: Headaches, Sinus Congestion, Sore Throat, Rhinitis, Visual Changes Pulmonary: Reports: Cough (Has had issues with a cough for several months but says it has been steadily improving. ). Denies: Shortness of Breath, Pleuritic Chest Pain, Sputum, Hemoptysis, Wheezing Cardiovascular: Reports: Palpitations, Lightheadedness (mild). Denies: Chest Pain, Dyspnea on Exertion, Orthopnea, Edema Gastrointestinal: Denies: Abdominal Pain, Diarrhea, Difficulty Swallowing, Hematochezia, Melena, Nausea, Vomiting Genitourinary: Reports: Retention, Other (indwelling cath due to BPH) Musculoskeletal: Reports: Other (no acute changes from baseline) Skin: Reports: No Symptoms Neurological: Denies: Confusion, Dizziness, Numbness, Paresthesia, Trouble Speaking, Change in Speech Psychiatric: Reports: No Symptoms - Patient Data Vitals - Most Recent: Last Vital Signs Temp 37.2 C 10/07/20 12:00 Pulse 71 10/07/20 12:00 Resp 16 10/07/20 12:00 BP 103/60 10/07/20 12:00 Pulse Ox 95 10/07/20 12:00 Weight - Most Recent: 87.226 kg I&O - Last 24 hours: Intake & Output 10/07/20 10/07/20 10/07/20 06:59 14:59 22:59 Intake Total 900 720 Output Total 1000 Balance -100 720 Lab Results - Last 24 hrs: Laboratory Results - last 24 hr 10/06/20 10/06/20 10/07/20 Range/Units 16:42 22:28 06:58 WBC 7.6 (4.0-10.2) K/uL RBC 4.20 L (4.33-5.41) M/uL Hgb 11.8 L (13.1-16.8) g/dL Hct 36.0 L (39.0-49.0) % MCV 85.7 (84.0-98.0) fL MCH 28.1 L (28.2-33.3) pg MCHC 32.8 (31.7-36.0) g/dL RDW 14.5 H (11.2-14.1) % Plt Count 185 (150-350) K/uL Neut % (Auto) 76.4 (45.0-80.0) % Lymph % (Auto) 15.0 (10.0-50.0) % [place] % (Auto) 6.8 (2.0-14.0) % Eos % (Auto) 1.4 (0.0-5.0) % Baso % (Auto) 0.4 (0.0-2.0) % Neut # (Auto) 5.80 (1.40-7.00) K/uL Lymph # (Auto) 1.14 (0.50-3.50) K/uL [place] # (Auto) 0.52 (0.00-1.00) K/uL Eos # (Auto) 0.11 (0.00-0.50) K/uL Baso # (Auto) 0.03 (0.00-0.20) K/uL Sodium (136-145) mmol/L Potassium (3.5-5.1) mmol/L Chloride (98-107) mmol/L Carbon Dioxide (21.0-32.0) mmol/L BUN (7-18) mg/dL Creatinine (0.51-1.17) mg/dL Est Cr Clr Drug Dosing mL/min Estimated GFR (MDRD) mL/min Glucose (70-99) mg/dL Hemoglobin A1c (4.3-5.7) % Calcium (8.5-10.1) mg/dL Total Bilirubin (0.2-1.0) mg/dL AST (15-37) U/L ALT (12-78) U/L Alkaline Phosphatase (46-116) IU/L Creatine Kinase 81 81 (26-308) U/L Creatine Kinase Index 1.6 1.9 (0.0-2.5) % CK-MB (CK-2) 1.30 1.50 (0.00-3.60) ng/mL Troponin I 0.195 H* 0.198 H* (0.000-0.056) ng/mL NT-Pro-B Natriuret Pep (0-125) pg/mL Total Protein (6.4-8.2) g/dL Albumin (3.4-5.0) g/dL Triglycerides (30-150) mg/dL Cholesterol (100-200) mg/dL LDL Cholesterol, Calc (0-100) mg/dL HDL Cholesterol (40-60) mg/dL 10/07/20 10/07/20 Range/Units 06:58 06:58 WBC (4.0-10.2) K/uL RBC (4.33-5.41) M/uL Hgb (13.1-16.8) g/dL Hct (39.0-49.0) % MCV (84.0-98.0) fL MCH (28.2-33.3) pg MCHC (31.7-36.0) g/dL RDW (11.2-14.1) % Plt Count (150-350) K/uL Neut % (Auto) (45.0-80.0) % Lymph % (Auto) (10.0-50.0) % [place] % (Auto) (2.0-14.0) % Eos % (Auto) (0.0-5.0) % Baso % (Auto) (0.0-2.0) % Neut # (Auto) (1.40-7.00) K/uL Lymph # (Auto) (0.50-3.50) K/uL [place] # (Auto) (0.00-1.00) K/uL Eos # (Auto) (0.00-0.50) K/uL Baso # (Auto) (0.00-0.20) K/uL Sodium 142 (136-145) mmol/L Potassium 3.6 (3.5-5.1) mmol/L Chloride 105 (98-107) mmol/L Carbon Dioxide 28.4 (21.0-32.0) mmol/L BUN 22 H (7-18) mg/dL Creatinine 1.45 H (0.51-1.17) mg/dL Est Cr Clr Drug Dosing 51.28 mL/min Estimated GFR (MDRD) 48 mL/min Glucose 119 H (70-99) mg/dL Hemoglobin A1c 5.4 (4.3-5.7) % Calcium 8.4 L (8.5-10.1) mg/dL Total Bilirubin 1.2 H (0.2-1.0) mg/dL AST 15 (15-37) U/L ALT 27 (12-78) U/L Alkaline Phosphatase 86 (46-116) IU/L Creatine Kinase 67 (26-308) U/L Creatine Kinase Index 1.2 (0.0-2.5) % CK-MB (CK-2) 0.80 (0.00-3.60) ng/mL Troponin I 0.169 H* (0.000-0.056) ng/mL NT-Pro-B Natriuret Pep 2150 H (0-125) pg/mL Total Protein 6.3 L (6.4-8.2) g/dL Albumin 3.4 (3.4-5.0) g/dL Triglycerides 70 (30-150) mg/dL Cholesterol 116 (100-200) mg/dL LDL Cholesterol, Calc 53 (0-100) mg/dL HDL Cholesterol 49 (40-60) mg/dL ALICIA Results - Last 24 hrs: Microbiology 10/07/20 10:35 Stool Occult Blood (ALICIA) - Final Stool / Feces NEGATIVE OCCULT BLOOD REFERENCE RANGE: NEGATIVE Med Orders - Current: Current Medications Acetaminophen (Acetaminophen 325 Mg Tab) 650 mg PO Q4H PRN PRN Reason: Pain Amlodipine Besylate (Amlodipine 5 Mg Tab) 10 mg PO DAILY [facility] Last Admin: 10/07/20 08:31 Dose: 10 mg Documented by: Apixaban (Apixaban 5 Mg Tab) 5 mg PO BID@ [facility] Last Admin: 10/07/20 08:31 Dose: 5 mg Documented by: Atorvastatin Calcium (Atorvastatin 40 Mg Tab) 40 mg PO DAILY@2300 [facility] Last Admin: 10/06/20 23:09 Dose: 40 mg Documented by: Coenzyme Q10 (Ubidecarenone 30 Mg Cap) 30 mg PO DAILY [facility] Last Admin: 10/07/20 08:31 Dose: 30 mg Documented by: Diltiazem HCl (Diltiazem 120 Mg Cap.Cd) 120 mg PO QPM [facility] Ferrous Sulfate (Ferrous Sulfate 325 Mg Tab) 325 mg PO BID@18 [facility] Last Admin: 10/07/20 12:21 Dose: 325 mg Documented by: Finasteride (Finasteride 5 Mg Tab) 5 mg PO DAILY@12 [facility] Last Admin: 10/07/20 12:21 Dose: 5 mg Documented by: Furosemide (Furosemide 40 Mg/4 Ml Vial) 40 mg IVPUSH DAILY [facility] Hydralazine HCl (Hydralazine 10 Mg Tab) 10 mg PO TID@0800,1800,2300 [facility] Last Admin: 10/07/20 08:33 Dose: 10 mg Documented by: Isosorbide Mononitrate (Isosorbide Mononitrate 60 Mg Tab.Er) 60 mg PO DAILY@12 [facility] Last Admin: 10/07/20 12:21 Dose: 60 mg Documented by: Lisinopril (Lisinopril 20 Mg Tab) 40 mg PO DAILY [facility] Last Admin: 10/07/20 08:31 Dose: 40 mg Documented by: Metoprolol Succinate (Metoprolol Succinate 50 Mg Tab.Er) 100 mg PO DAILY [facility] Last Admin: 10/07/20 08:30 Dose: 100 mg Documented by: Mesalamine [Pentasa] 250 Mg Cap.Er Own Med 2 cap PO Q12HR [facility] Last Admin: 10/07/20 08:34 Dose: 2 cap Documented by: Mesalamine [Pentasa] 250 Mg Cap.Er Own Med 250 mg PO BID@ [facility] Last Admin: 10/07/20 12:22 Dose: 250 mg Documented by: Oxybutynin Chloride (Oxybutynin 5 Mg Tab.Er) 10 mg PO DAILY@12 [facility] Last Admin: 10/07/20 12:22 Dose: 10 mg Documented by: Potassium Chloride (Potassium Chloride 20 Meq Tab.Er) 40 meq PO TID [facility] Last Admin: 10/07/20 12:21 Dose: 40 meq Documented by: Sodium Chloride (Sodium Chloride 0.9% 10 Ml Syringe) 10 ml FLUSH ASDIRECTED PRN PRN Reason: Keep Vein Open Last Admin: 10/07/20 08:32 Dose: 10 ml Documented by: Sodium Chloride (Sodium Chloride 0.9% 10 Ml Syringe) 10 ml FLUSH Q12HR PRN PRN Reason: Keep Vein Open Tamsulosin HCl (Tamsulosin 0.4 Mg Cap.Er) 0.4 mg PO DAILY@08 [facility] Last Admin: 10/07/20 08:32 Dose: 0.4 mg Documented by: Temazepam (Temazepam 15 Mg Cap) 15 mg PO BEDTIME PRN PRN Reason: Insomnia Discontinued Medications Diltiazem HCl (Diltiazem 120 Mg Cap.Cd) 120 mg PO ONETIME ONE Stop: 10/06/20 15:01 Last Admin: 10/06/20 15:51 Dose: 120 mg Documented by: Famotidine (Famotidine 20 Mg/2 Ml Sdv) 40 mg IVPUSH ONETIME ONE Stop: 10/06/20 12:29 Last Admin: 10/06/20 13:32 Dose: 40 mg Documented by: Furosemide (Furosemide 40 Mg/4 Ml Vial) 40 mg IVPUSH BID AMPARO Last Admin: 10/07/20 08:32 Dose: 40 mg Documented by: - Exam Quality Assessment: Reports: DVT Prophylaxis General: Reports: Alert, Oriented, No Acute Distress HEENT: Reports: Pupils Equal, Pupils Reactive, EOMI, Mucous Membr. Moist/[place] Neck: Reports: Supple Lungs: Reports: Clear to Auscultation, Normal Respiratory Effort Cardiovascular: Reports: No Murmurs, Irregular Rhythm GI/Abdominal Exam: Normal Bowel Sounds, Soft, Non-Tender (Male) Exam: Deferred Rectal (Males) Exam: Deferred Back Exam: Denies: CVA Tenderness (L), CVA Tenderness (R), Muscle Spasm Extremities: Non-Tender, Normal Capillary Refill Skin: Reports: Warm, Dry Neurological: Reports: No New Focal Deficit Psy/Mental Status: Reports: Alert, Normal Affect, Normal Mood #1 Interpretation EKG Date: 10/07/20 Time: 07:16 Rhythm: A-Fib Rate (Beats/Min): 76 [place]: Normal P-Wave: Absent QRS: Normal ST-T: Normal QT: Normal #2 Interpretation EKG Date: 10/07/20 Time: 16:08 Rhythm: Other (Sinus bradycardia) Rate (Beats/Min): 44 [place]: Normal P-Wave: Present QRS: Normal ST-T: Normal QT: Normal Comparison: Change From Previous EKG (converted from Afib)
[2020-10-07 16:25] VITALS: BP 102/60; PULSE 46
[2020-10-07] MEDS ORDERED: Diltiazem 120 MG Cap.CD PO SCH (18:00)
[2020-10-08] MEDS ORDERED: Potassium Chloride 20 MEQ Tab.ER PO SCH (08:00)
[2020-10-08] MEDS ORDERED: Furosemide 40 MG/4 ML VIAL IVPUSH SCH (08:00)
== END 2020-10-07 17:30 ==
LOC: LL.ED 12:21 → LL.MS 14:15
PROVIDERS: ADMIT Family Medicine; ATTEND Family Medicine
DX: I48.91 Unspecified atrial fibrillation (principal); I25.10 Atherosclerotic heart disease of native coronary artery without angina pectoris; I11.0 Hypertensive heart disease with heart failure; N40.1 Benign prostatic hyperplasia with lower urinary tract symptoms; N13.8 Other obstructive and reflux uropathy; I49.1 Atrial premature depolarization; I49.3 Ventricular premature depolarization; K21.9 Gastro-esophageal reflux disease without esophagitis; G47.33 Obstructive sleep apnea (adult) (pediatric); E87.6 Hypokalemia; N20.9 Urinary calculus, unspecified; I50.22 Chronic systolic (congestive) heart failure; Z79.899 Other long term (current) drug therapy; R77.8 Other specified abnormalities of plasma proteins; Z95.5 Presence of coronary angioplasty implant and graft
CPT/HCPCS: 36415; 71045; 78452; 80053; 80061; 82272; 82550; 82553; 83036; 83605; 83735; 83880; 84443; 84484; 84550; 85025; 85379; 85610; 85730; 93005; 93010; 93017; 96374; 96375; 96376; 99217; 99220; 99285-25; A9270-GY; G0378; J1940; J3490